=== PATIENT | female | born 1975 | race Caucasian/White ===

== ENCOUNTER 2017-12-07 11:35 | Emergency (ER) | payer MEDICAID, OTHER ==
[~2017-12-07] VITALS: Ht 154.9 cm; Wt 72.0 kg
[~2017-12-07 11:35] MED LIST: ACET1TAB12 PO; ERYT-109 PO; GUAI120015 PO; OXYC-145 PO; PHEN-786 PO; PSEU-259 PO
[2017-12-07] MEDS ORDERED: diphenhydrAMINE 50 mg/ml inj IV ONE (12:00)
[2017-12-07] MEDS ORDERED: epiNEPHrine 1 mg/ml inj SQ STA (12:00)
[2017-12-07] MEDS ORDERED: methylPREDNISolone sod succ 125mg/2ml vial IV ONE (12:00)
[2017-12-07] MEDS ORDERED: normal saline 1000ML IV soln IVB ONE (12:00)
[2017-12-07] MEDS ORDERED: famotidine/PF 10 mg/ml inj IV ONE (12:00)
[2017-12-07] MEDS ORDERED: ondansetron/PF 4mg/2ml inj IV ONE (12:00)
[2017-12-07] MEDS ORDERED: EPIN0.3P8 IM (12:21)
[2017-12-07 13:22] VITALS: BP 131/74
== END 2017-12-07 13:25 | disposition home or self-care (01) ==
LOC: ER 11:36
DX: T63.441A Toxic effect of venom of bees, accidental (unintentional), initial encounter (principal); G43.909 Migraine, unspecified, not intractable, without status migrainosus; G89.29 Other chronic pain; Z98.890 Other specified postprocedural states; Z98.51 Tubal ligation status; Z88.0 Allergy status to penicillin; Z88.5 Allergy status to narcotic agent; Z79.899 Other long term (current) drug therapy; Y92.9 Unspecified place or not applicable
CPT/HCPCS: 96361; 96372; 96374; 96375; 99284; J0171; J2405; J2930; J3490; J7030; J1200